=== PATIENT | female | born 1960 | race African-American/Black ===

== ENCOUNTER 2020-04-26 12:45 | Emergency (ER) | payer BC, OTHER ==
[~2020-04-26] VITALS: Ht 167.6 cm; Wt 84.0 kg
[~2020-04-26 12:45] MED LIST: DICL100T PO
[2020-04-26 13:00] VITALS: BP 165/97
[2020-04-26] MEDS ORDERED: HYDR-2761 PO (13:17)
[2020-04-26] MEDS ORDERED: PRED20TA PO (13:17)
--- NOTE | 2020-04-26 13:19 | PHYS DOC ---
Past Medical History Past Medical History: Depression Past Surgical History: No Surgical History Smoking Status: Current Every Day Smoker Alcohol Use: Rarely Drug Use: None General Adult EDM: Chief Complaint: SHOUDLER HPI: HPI: Patient is a 59 year old female who presents to the emergency department with complaints of pain from her neck to her left shoulder and down the back of her left upper arm. She reports that she was recently diagnosed with 2 bulging disks in her neck. She denies any injury. She denies any decreased sensation, numbness, tingling, or weakness of the affected extremity. She complains of a sharp shooting pain that she rates 8 out of 10 on the pain scale, patient reports she has been taking 2 tablets of Aleve in the morning for other arthritic pain with no relief in her symptoms. She reports that the pain is worse with movement. Review of Systems: Review of Systems: Constitutional: Denies fever or chills. [] Respiratory: Denies cough or shortness of breath. [] Cardiovascular: Denies chest pain Musculoskeletal: Denies back pain; see HPI Neurologic: Denies headache, focal weakness or sensory changes. [] Psychiatric: Denies depression or anxiety. [] Heart Score: Risk Factors: Risk Factors: DM, Current or recent (<one month) smoker, HTN, HLP, family history of CAD, obesity. Risk Scores: Score 0 - 3: 2.5% MACE over next 6 weeks - Discharge Home Score 4 - 6: 20.3% MACE over next 6 weeks - Admit for Clinical Observation Score 7 - 10: 72.7% MACE over next 6 weeks - Early Invasive Strategies Allergies: Allergies: Allergies Coded Allergies Type Severity Reaction Last Updated Verified citalopram Allergy Intermediate 03/10/16 Yes Physical Exam: PE: Constitutional: Well developed, well nourished, no acute distress, non-toxic appearance. [] HENT: Normocephalic, atraumatic, bilateral external ears normal, nose normal. [] Eyes: PERRLA, EOMI, conjunctiva normal, no discharge. [] Neck: Normal range of motion, no stridor; left sternocleidomastoid tenderness to palpation Cardiovascular:Heart rate regular rhythm Lungs & Thorax: Respirations even and unlabored, no retractions, no respiratory distress Skin: Warm, dry, no erythema, no rash. [] Extremities: Left shoulder: No bony tenderness, no cyanosis, no clubbing, ROM intact, no edema, 2+ radial pulse, sensation intact. [] Neurologic: Alert and oriented X 3, no focal deficits noted. [] Psychologic: Affect normal, judgement normal, mood normal. [] EKG: EKG: [] Radiology/Procedures: Radiology/Procedures: [] Course & Med Decision Making: Course & Med Decision Making Pertinent Labs and Imaging studies reviewed. (See chart for details) Patient is a 59-year-old female who presented to the emergency department with complaints of increased pain in her left shoulder since yesterday. She denied any injury. Patient reports she was recently diagnosed with 2 bulging disks in her spine. Advised the patient of cervical radiculopathy. Prescriptions written for prednisone taper and hydrocodone. I advised the patient to not take her Xanax while taking hydrocodone. I provided the patient with Dr. Mcknight's information for follow-up. The patient was given 50 mg of prednisone in the emergency department. Patient verbalized an understanding of home care, medications, follow-up, and return to ED instructions and was in agreement with the plan of care. [] Dragon Disclaimer: Dragon Disclaimer: This electronic medical record was generated, in whole or in part, using a voice recognition dictation system. Departure Departure Impression: Primary Impression: Left cervical radiculopathy Disposition: 01 HOME, SELF-CARE Condition: STABLE Referrals: CHARLES VERDE (PCP) SARAH BETH MCKNIGHT MD Patient Instructions: Cervical Radiculopathy, [id number] Additional Instructions: Call Dr. Mcknight's office for further evaluation and treatment of the bulging discs in your neck. Fill the prescriptions and use as directed. DO NOT TAKE XANAX if taking [place]. Apply heat or ice as needed for comfort, activity as tolerated. Return to the ER if symptoms worsen. Scripts Hydrocodone Bit/Acetaminophen (HYDROCODONE-APAP 5-325 ) 1 Tab Tablet 0.5-1 TAB PO PRN Q6HRS PRN for SEVERE PAIN 7-10, #10 TAB 0 Refills Prov: STEF KRAFT MICROBIOLOGY MANAGER 04/26/20 Prednisone (PREDNISONE) 20 Mg Tablet 1 TAB PO UD for 12 Days, #15 TAB 2 tabs by mouth days 1,2,3 then 1.5 tabs by mouth days 4,5,6 then 1 tab by mouth days 7,8,9 then 0.5 tab by mouth day 10,11,12 Prov: STEF KRAFT APRN 04/26/20 Justicifation of Admission Dx: Justifications for Admission: Justification of Admission Dx: N/A STEF KRAFT APRN Apr 26, 2020 13:19
[2020-04-26] MEDS ORDERED: predniSONE 10 MG TABLET PO ONE (13:30)
== END 2020-04-26 13:57 | disposition home or self-care (01) ==
LOC: ER 12:45
DX: M54.12 Radiculopathy, cervical region (principal); F17.200 Nicotine dependence, unspecified, uncomplicated; Z88.8 Allergy status to other drugs, medicaments and biological substances
CPT/HCPCS: 99283; J7512

== ENCOUNTER 2020-11-05 00:25 | Emergency (ER) | payer BC ==
[~2020-11-05] VITALS: Ht 167.6 cm; Wt 86.4 kg
[~2020-11-05 00:25] MED LIST changes: +HYDR-2761 PO; +PRED20TA PO
[2020-11-05 01:19] LABS: BASO % 1 % (0-3); EOS # 0.3 x10^3/uL (0.0-0.7); EOS % 5 % (0-3); HEMATOCRIT 39.9 % (36.0-47.0); HEMOGLOBIN 13.5 g/dL (12.0-15.5); LYMPH # 1.4 x10^3/uL (1.0-4.8); LYMPH % 29 % (24-48); MEAN CORPUSCULAR HEMOGLOBIN 32 pg (25-35); MEAN CORPUSCULAR HGB CONC 34 g/dL (31-37); MEAN CORPUSCULAR VOLUME 94 fL (79-100); MONO # 0.5 x10^3/uL (0.0-1.1); MONO % 10 % (0-9); NEUT # 2.7 x10^3/uL (1.8-7.7); NEUT % 55 % (31-73); PLATELET COUNT 237 x10^3/uL (140-400); RED BLOOD COUNT 4.22 x10^6/uL (3.50-5.40); RED CELL DISTRIBUTION WIDTH 13.3 % (11.5-14.5); WHITE BLOOD COUNT 4.9 x10^3/uL (4.0-11.0)
--- NOTE | 2020-11-05 01:20 | ED.ADGEN ---
Past Medical History Past Medical History: Arthritis, Depression Additional Past Medical Histor: herniated Cervial disc Past Surgical History: No Surgical History Smoking Status: Former Smoker Additional Information: "QUIT 1 1/2 YEARS AGO" Alcohol Use: Rarely Drug Use: None General Adult EDM: Chief Complaint: CHEST PAIN HPI: HPI: Patient is a 60 year old female coming in for chest tightness starting letter prior to arrival. Patient states that she was like there is a belt wrapped around her lower chest and squeezing. Discomfort started when she was sitting on her couch watching TV 1 hour prior to arrival. (At 1030.) Usually is in the front but sometimes wraps around to the back. Denies any associated symptoms such as nausea, lightheadedness, diaphoresis, shortness of breath or cough. Patient states she had a similar episode a few days ago that resolved quickly. Denies any cardiac disease. Denies any history of hypertension or diabetes. Has a history of anxiety and depression. Has significant family history of cardiac disease. Was a prior smoker but quit 1/2 years ago Review of Systems: Review of Systems: All other systems within normal limits except for as noted in the HPI Allergies: Allergies: Allergies Coded Allergies Type Severity Reaction Last Updated Verified citalopram Allergy Intermediate 03/10/16 Yes Physical Exam: PE: Constitutional: Well developed, well nourished, no acute distress, non-toxic appearance. [] HENT: Normocephalic, atraumatic, bilateral external ears normal, nose normal. [] Eyes: PERRLA, conjunctiva normal, no discharge. [] Neck: No rigidity, supple, no stridor. [] Cardiovascular: Regular rate and rhythm, brisk cap refill [] Lungs & Thorax: Non labored symmetric respirations, no tachypnea or respiratory distress [] Abdomen: Soft, nondistended. Skin: Warm, dry, no erythema, no rash. [] Back: Unremarkable Extremities: No deformities, range of motion grossly intact, no lower extremity edema [] Neurologic: Alert and oriented X 3, no focal deficits noted. [] Psychologic: Affect normal, judgement normal, mood normal. [] Current Patient Data: Labs: Laboratory Tests Test 11/05/20 00:46 11/05/20 02:00 11/05/20 03:06 White Blood Count 4.9 x10^3/uL (4.0-11.0) Red Blood Count 4.22 x10^6/uL (3.50-5.40) Hemoglobin 13.5 g/dL (12.0-15.5) Hematocrit 39.9 % (36.0-47.0) Mean Corpuscular Volume 94 fL (79-100) Mean Corpuscular Hemoglobin 32 pg (25-35) Mean Corpuscular Hemoglobin Concent 34 g/dL (31-37) Red Cell Distribution Width 13.3 % (11.5-14.5) Platelet Count 237 x10^3/uL (140-400) Neutrophils (%) (Auto) 55 % (31-73) Lymphocytes (%) (Auto) 29 % (24-48) Monocytes (%) (Auto) 10 % (0-9) H Eosinophils (%) (Auto) 5 % (0-3) H Basophils (%) (Auto) 1 % (0-3) Neutrophils # (Auto) 2.7 x10^3/uL (1.8-7.7) Lymphocytes # (Auto) 1.4 x10^3/uL (1.0-4.8) Monocytes # (Auto) 0.5 x10^3/uL (0.0-1.1) Eosinophils # (Auto) 0.3 x10^3/uL (0.0-0.7) Basophils # (Auto) 0.0 x10^3/uL (0.0-0.2) D-Dimer (Maria E) 0.30 ug/mlFEU (0.00-0.50) Sodium Level 140 mmol/L (136-145) Potassium Level 4.1 mmol/L (3.5-5.1) Chloride Level 102 mmol/L (98-107) Carbon Dioxide Level 25 mmol/L (21-32) Anion Gap 13 (6-14) Blood Urea Nitrogen 19 mg/dL (7-20) Creatinine 0.8 mg/dL (0.6-1.0) Estimated GFR (Cockcroft-Gault) 88.2 BUN/Creatinine Ratio 24 (6-20) H Glucose Level 96 mg/dL (70-99) Calcium Level 10.0 mg/dL (8.5-10.1) Total Bilirubin 0.3 mg/dL (0.2-1.0) Aspartate Amino Transferase (AST) 168 U/L (15-37) H Alanine Aminotransferase (ALT) 184 U/L (14-59) H Alkaline Phosphatase 186 U/L (46-116) H Troponin I Quantitative < 0.017 ng/mL (0.000-0.055) < 0.017 ng/mL (0.000-0.055) Total Protein 7.1 g/dL (6.4-8.2) Albumin 3.6 g/dL (3.4-5.0) Albumin/Globulin Ratio 1.0 (1.0-1.7) Lipase 146 U/L (73-393) Urine Collection Type Unknown Urine Color Yellow Urine Clarity Clear Urine pH 6.0 (<5.0-8.0) Urine Specific [place] 1.015 (1.000-1.030) Urine Protein Negative mg/dL (NEG-TRACE) Urine Glucose (UA) Negative mg/dL (NEG) Urine Ketones (Stick) Negative mg/dL (NEG) Urine Blood Negative (NEG) Urine Nitrite Negative (NEG) Urine Bilirubin Negative (NEG) Urine Urobilinogen Dipstick 0.2 mg/dL (0.2 mg/dL) Urine Leukocyte Esterase Small (NEG) Urine RBC 0 /HPF (0-2) Urine WBC 5-10 /HPF (0-4) Urine Squamous Epithelial Cells Mod /LPF Urine Bacteria Few /HPF (0-FEW) Urine Mucus Mod /LPF Laboratory Tests 11/05/20 00:46 Laboratory Tests 11/05/20 00:46 Vital Signs: Vital Signs Date Time Temp Pulse Resp B/P (MAP) Pulse Ox O2 Delivery O2 Flow Rate FiO2 11/05/20 03:05 74 14 134/69 (90) 97 Room Air 11/05/20 00:32 98.0 98.0 EKG: EK:Sinus tachycardia, heart rate 102 bpm, left axis deviation, no ST elevation or depression. Normal intervals, no ectopy. 0304: Sinus rhythm, heart rate 70/min, left axis deviation, no changes from previous ECG [] Heart Score: C/O Chest Pain: Yes HEART Score for Chest Pain: HEART Score for Chest Pain Response (Comments) Value History Moderately Suspicious 1 ECG Nonspecific Repolarizatio 1 Age >45 - < 65 1 Risk Factors 1 or 2 Risk Factors 1 Troponin < Normal Limit 0 Total 4 Risk Factors: Risk Factors: DM, Current or recent (<one month) smoker, HTN, HLP, family history of CAD, obesity. Risk Scores: Score 0 - 3: 2.5% MACE over next 6 weeks - Discharge Home Score 4 - 6: 20.3% MACE over next 6 weeks - Admit for Clinical Observation Score 7 - 10: 72.7% MACE over next 6 weeks - Early Invasive Strategies Radiology/Procedures: Radiology/Procedures: XR CHEST 2V INDICATION: chest pain COMPARISON STUDY: 03/10/2016. FINDINGS: Lungs: Normal lung volume. Mild ill-defined left mid lung opacities. The tracheobronchial tree and hilar structures are normal. Pleura: No pleural effusion or pneumothorax. Heart and Mediastinum: The cardiomediastinal silhouette is normal. The great vessels of the thorax are normal. Bones and Soft Tissues: Degenerative changes of the spine. IMPRESSION: Mild ill-defined left mid lung opacities, which could represent an infectious/inflammatory process.. [] Course & Med Decision Making: Course & Med Decision Making Pertinent Labs and Imaging studies reviewed. (See chart for details) [] Dragon Disclaimer: Dragon Disclaimer: This electronic medical record was generated, in whole or in part, using a voice recognition dictation system. Departure Departure Impression: Primary Impression: CAP (community acquired pneumonia) Additional Impression: Chest tightness Disposition: 01 DC HOME SELF CARE/HOMELESS Condition: STABLE Referrals: CHARLES VERDE (PCP) Patient Instructions: Pneumonia, Adult Scripts Amoxicillin/Potassium Clav (AUGMENTIN 875-125 TABLET) 1 Each Tablet 1 TAB PO BID for antibiotic for 7 Days, #14 TAB 0 Refills Prov: MELVIN NGUYỄN MD 11/05/20 Problem Qualifiers MELVIN NGUYỄN MD Nov 05, 2020 01:20
[2020-11-05 01:36] LABS: CREATININE 0.8 mg/dL (0.6-1.0); GFR 88.2; POTASSIUM 4.1 mmol/L (3.5-5.1)
[2020-11-05 01:42] LABS: ALBUMIN 3.6 g/dL (3.4-5.0); TOTAL BILIRUBIN 0.3 mg/dL (0.2-1.0); TOTAL PROTEIN 7.1 g/dL (6.4-8.2)
[2020-11-05 02:12] LABS: BILIRUBIN,URINE NEGATIVE (NEG); CLARITY,URINE CLEAR; COLOR,URINE YELLOW; NITRITE,URINE NEGATIVE (NEG); PROTEIN,URINE NEGATIVE (NEG-TRACE); UROBILINOGEN,URINE 0.2 mg/dL (0.2 mg/dL)
--- NOTE | 2020-11-05 02:22 | RAD ---
XR CHEST 2V INDICATION: chest pain COMPARISON STUDY: 03/10/2016. FINDINGS: Lungs: Normal lung volume. Mild ill-defined left mid lung opacities. The tracheobronchial tree and hi lar structures are normal. Pleura: No pleural effusion or pneumothorax. Heart and Mediastinum: The cardiomediastinal silhouette is normal. The great vessels of the thorax ar e normal. Bones and Soft Tissues: Degenerative changes of the spine. IMPRESSION: Mild ill-defined left mid lung opacities, which could represent an infectious/inflammatory process.. Electronically signed by: Jeffery Allan MD (11/05/2020 2:20 AM) [id number]
[2020-11-05 02:31] LABS: BACTERIA,URINE FEW /HPF (0-FEW); RBC,URINE 0 /HPF (0-2)
--- NOTE | 2020-11-05 02:48 | EKG ---
[facility] [address] [place] [address] Test Date: 2020-11-05 Test Time: 00:31:24 Pat Name: MY PACHECO Department: Room: Gender: F Assembler Installer General: : 1960 Requested By: MELVIN NGUYỄN Order Number: [id number] Reading MD: Measurements Intervals [place] Rate: 102 P: 5 SC: 164 QRS: -10 QRSD: 80 T: 29 QT: 322 QTc: 424 Interpretive Statements SINUS TACHYCARDIA LEFTWARD AXIS OTHERWISE NORMAL ECG RI6.02 No previous ECG available for comparison
[2020-11-05] MEDS ORDERED: AMOX1TAB61 PO (03:21)
--- NOTE | 2020-11-05 03:39 | EKG ---
[facility] [address] [place] [address] Test Date: 2020-11-05 Test Time: 03:04:40 Pat Name: MY PACHECO Department: Room: Gender: F Training Officer: : 1960 Requested By: MELVIN NGUYỄN Order Number: [id number] Reading MD: Measurements Intervals [place] Rate: 78 P: 42 CA: 176 QRS: -13 QRSD: 80 T: 36 QT: 366 QTc: 421 Interpretive Statements SINUS RHYTHM LEFTWARD AXIS OTHERWISE NORMAL ECG RI6.02 No previous ECG available for comparison
[2020-11-05 04:05] VITALS: BP 132/72
== END 2020-11-05 04:24 | disposition home or self-care (01) ==
LOC: ER 00:25
DX: J18.9 Pneumonia, unspecified organism (principal); R07.89 Other chest pain; M19.90 Unspecified osteoarthritis, unspecified site; F32.9 Major depressive disorder, single episode, unspecified; Z87.891 Personal history of nicotine dependence; Z88.8 Allergy status to other drugs, medicaments and biological substances
CPT/HCPCS: 36415; 71046; 80053; 81001; 83690; 84484; 85025; 85379; 87086; 93005; 99285